=== PATIENT | male | born 1960 | race African-American/Black ===

== ENCOUNTER 2018-11-09 11:50 | Emergency (ER) | payer OTHER, MEDICARE ==
--- NOTE | 2018-11-09 12:12 | ER Document Report ---
ED Medical Screen (RME) - General Chief Complaint: Chest Pain Stated Complaint: CHEST PAIN Time Seen by Provider: 11/09/18 12:10 TRAVEL OUTSIDE OF THE [place] IN LAST 30 DAYS: No - HPI Notes: 11/09/18 12:11 Patient woke up this morning with symptoms similar to his last heart attack in 2016 number birthing sweating profusely. Patient is a symptomatic at this time. Patient states he has had diarrhea the last few days. Patient does have a history of 5 stents - Related Data Allergies/Adverse Reactions: No Known Allergies Allergy (Verified 11/09/18 11:52) Past Medical History - Past Medical History Cardiac Medical History: Reports: Hx Heart Attack - X3 Renal/ Medical History: Denies: Hx Peritoneal Dialysis Past Surgical History: Reports: Hx Cardiac Surgery - 5 stents Review of Systems - Review of Systems Cardiovascular: Chest pain Physical Exam - Vital signs Vitals: Temp Pulse Resp BP Pulse Ox 99.6 F 64 17 152/83 H 100 11/09/18 12:05 11/09/18 12:05 11/09/18 12:05 11/09/18 12:05 11/09/18 12:05 - Respiratory Respiratory status: No respiratory distress Chest status: Nontender Breath sounds: Normal Chest palpation: Normal Course - Vital Signs Vital signs: Temp Pulse Resp BP Pulse Ox 99.6 F 64 17 152/83 H 100 11/09/18 12:05 11/09/18 12:05 11/09/18 12:05 11/09/18 12:05 11/09/18 12:05
[2018-11-09 12:44] LABS: ABSOLUTE EOSINOPHILS # (AUTO) 0.1 10^3/uL (0.0-0.6); ABSOLUTE LYMPHOCYTES (AUTO) 0.6 10^3/uL (0.5-4.7); ABSOLUTE MONOCYTES (AUTO) 0.7 10^3/uL (0.1-1.4); ABSOLUTE NEUT (AUTO) 4.4 10^3/uL (1.7-8.2); BASOPHILS % (AUTO) 0.6 % (0-2); EOSINOPHILS % (AUTO) 0.9 % (0-6); HEMATOCRIT 45.2 % (37.9-51.0); HEMOGLOBIN 15.3 g/dL (13.5-17.0); MEAN CORPUSCULAR HEMOGLOBIN 29.2 pg (27.0-33.4); MEAN CORPUSCULAR VOLUME 86 fl (80-97); MONOCYTES % (AUTO) 11.8 % (3-13); PLATELET COUNT 208 10^3/uL (150-450); RED BLOOD COUNT 5.25 10^6/uL (4.35-5.55); RED CELL DISTRIBUTION WIDTH 15.7 % (11.5-14.0); SEGMENTED NEUTROPHILS % (AUTO) 75.7 % (42-78); TOTAL CELLS COUNTED % (AUTO) 100 %; WHITE BLOOD COUNT 5.7 10^3/uL (4.0-10.5)
--- NOTE | 2018-11-09 12:50 | RADIOLOGY REPORT (SQ) ---
EXAM DESCRIPTION: CHEST 2 VIEWS COMPLETED DATE/TIME: 11/09/2018 12:40 pm REASON FOR STUDY: cp COMPARISON: None. EXAM PARAMETERS: NUMBER OF VIEWS: two views TECHNIQUE: Digital Frontal and Lateral radiographic views of the chest acquired. RADIATION DOSE: NA LIMITATIONS: none FINDINGS: LUNGS AND PLEURA: No opacities, masses or pneumothorax. No pleural effusion. MEDIASTINUM AND HILAR STRUCTURES: No masses or contour abnormalities. HEART AND VASCULAR STRUCTURES: Heart normal size. No evidence for failure. BONES: No acute findings. HARDWARE: None in the chest. OTHER: No other significant finding. IMPRESSION: NO ACUTE RADIOGRAPHIC FINDING IN THE CHEST. TECHNICAL DOCUMENTATION: JOB ID: [id number] [employer]- All Rights Reserved Reading location - IP/workstation name: [email or web address]
[2018-11-09 13:04] LABS: ALANINE AMINOTRANSFERASE 14 U/L (21-72); ALBUMIN 4.5 g/dL (3.5-5.0); ALKALINE PHOSPHATASE 37 U/L (38-126); ANION GAP 8 (5-19); ASPARTATE AMINO TRANSFERASE 27 U/L (17-59); BILIRUBIN,DIRECT 0.3 mg/dL (0.0-0.4); BILIRUBIN,TOTAL 0.5 mg/dL (0.2-1.3); BLOOD UREA NITROGEN 11 mg/dL (7-20); CALCIUM 9.3 mg/dL (8.4-10.2); CARBON DIOXIDE 28 mmol/L (22-30); CHLORIDE 108 mmol/L (98-107); CREATINE KINASE 111 U/L (55-170); GLUCOSE 90 mg/dL (75-110); POTASSIUM 4.2 mmol/L (3.6-5.0); SODIUM 143.8 mmol/L (137-145); TOTAL PROTEIN 7.1 g/dL (6.3-8.2)
--- NOTE | 2018-11-09 13:07 | ER Document Report ---
ED General - General Chief Complaint: Chest Pain Stated Complaint: CHEST PAIN Time Seen by Provider: 11/09/18 12:10 TRAVEL OUTSIDE OF THE [place] IN LAST 30 DAYS: No - HPI Notes: Patient is a 57-year-old male with a history of hypertension, type 2 diabetes coronary artery disease with 5 stents being placed (last one in 2015) who presents to the emergency department complaining of belching and hiccuping after waking up diaphoretic at 4 AM. Patient states that these of the exact same symptoms that he had with the last 3 heart attacks. Patient states that he never has chest pain or respiratory symptoms associated. Patient states that he otherwise feels well and has been eating and drinking without difficulty. He is urinating normally and having normal bowel movements. Denies drug allergies. Patient does admit to smoking but denies IV drug abuse. He has no other concerns or complaints at this time. Patient is already adamant that he will be leaving by 4:00 this afternoon as he came to this area for his son's birthday [place] and will not be missing it. + occ cough. Denies any headache, fever, neck pain, URI, sore throat, chest pain, palpitations, syncope, shortness of breath, wheeze, dyspnea, abdominal pain, nausea/vomiting/diarrhea, urinary retention, dysuria, hematuria, loss of control of bowel or bladder, numbness/tingling, muscle paralysis/weakness, or rash. - Related Data Allergies/Adverse Reactions: No Known Allergies Allergy (Verified 11/09/18 11:52) Past Medical History - Social History Smoking Status: Current Every Day Smoker Family History: Reviewed & Not Pertinent Patient has suicidal ideation: No Patient has homicidal ideation: No - Past Medical History Cardiac Medical History: Reports: Hx Heart Attack - X3 Renal/ Medical History: Denies: Hx Peritoneal Dialysis Past Surgical History: Reports: Hx Cardiac Surgery - 5 stents Review of Systems - Review of Systems -: Yes All other systems reviewed and negative Physical Exam - Vital signs Vitals: Temp Pulse Resp BP Pulse Ox 99.6 F 64 17 152/83 H 100 11/09/18 12:05 11/09/18 12:05 11/09/18 12:05 11/09/18 12:05 11/09/18 12:05 - Notes Notes: PHYSICAL EXAMINATION: GENERAL: Well-appearing, well-nourished and in no acute distress. A&Ox4. Answers questions appropriately. HEAD: Atraumatic, normocephalic. EYES: Pupils equal round and reactive to light, extraocular movements intact, sclera anicteric, conjunctiva are normal. ENT: Nares patent and without discharge. oropharynx clear without exudates. No tonsilar hypertrophy or erythema. Moist mucous membranes. NECK: Normal range of motion, supple without lymphadenopathy LUNGS: Breath sounds clear to auscultation bilaterally and equal. No wheezes rales or rhonchi. HEART: Regular rate and rhythm without murmurs, rubs, gallops. ABDOMEN: Soft, nontender, nondistended abdomen. No guarding, no rebound. No masses appreciated. Normal bowel sounds present. No CVA tenderness bilaterally. Musculoskeletal: FROM to passive/active. Strength 5+/5. Marika neg. No asymmetry to LE's. Extremities: No cyanosis, clubbing, or edema b/l. Peripheral pulses 2+. Capillary refill less than 3 seconds. NEUROLOGICAL: Normal speech, normal gait. PSYCH: Normal mood, normal affect. SKIN: Warm, Dry, normal turgor, no rashes or lesions noted. Course - Re-evaluation Re-evalutation: 11/09/18 15:21 Patient is an afebrile, well-hydrated 57-year-old male who presents to the ED with hiccups and history concerning for cardiac etiology (same sx's last 3 MT's- w/o any cardiopulmonary symptoms). Vitals are acceptable without any significant tachycardia, tachypnea, or hypoxia. PE is otherwise unremarkable. Patient is nontoxic-appearing and is tolerating p.o. without any difficulties. Pt was given pepcid. CBC, CMP, EKG/cardiac enzyme x1, chest x-ray are all unremarkable for any acute pathology. Patient has a heart score of 4, Wells score of 0. Patient does not have any chest pain, dyspnea, or shortness of breath. Pt's 2nd trop was drawn(earlier than I wanted) bc pt elected to sign out AMA. I thoroughly reviewed the risk and benefit of leaving with an incomplete work up including the worst case of which he is understanding of. Patient is aware that his condition can change from initial presentation and he needs to monitor symptoms closely and seek medical attention for any acute changes. I will send him home with a single dose of thorazine for bedtime tonight and omeprazole. Recommend conservative measures for symptoms. Recheck with your PCM in 2-3 days. Consider consult with Cardiology. Return to the ED with any worsening/concerning symptoms otherwise as reviewed in discharge. Patient is in agreement. - Vital Signs Vital signs: Temp Pulse Resp BP Pulse Ox 99.6 F 64 25 H 162/95 H 98 11/09/18 12:05 11/09/18 12:05 11/09/18 14:01 11/09/18 14:01 11/09/18 14:01 - Laboratory Result Diagrams: 11/09/18 12:28 11/09/18 12:28 Laboratory results interpreted by me: 11/09/18 11/09/18 12:28 12:28 RDW 15.7 H Lymphocytes % 11.0 L Chloride 108 H ALT 14 L Alkaline Phosphatase 37 L Discharge - Discharge Clinical Impression: Hiccups Condition: Stable Disposition: AGAINST MEDICAL ADVICE Additional Instructions: Maintain adequate fluid and food intake Take home medications as directed Low sodium/fat diet Monitor blood pressure daily and keep a log Monitor symptoms for any acute changes Recheck with your PCM in 2-3 days Consider a follow-up with cardiology Return to the ED with any worsening symptoms and/or development of fever, headache, chest pain, palpitations, syncope, shortness of breath, trouble breathing, abdominal pain, n/v/d, blood in stool/urine, loss of control of bowel/bladder, urinary retention, muscle weakness/paralysis, numbness/tingling, or other worsening symptoms that are concerning to you. Prescriptions: Chlorpromazine HCl [Thorazine 50 mg Tablet] 50 mg PO QHS #1 tablet Omeprazole 20 mg PO DAILY #10 tablet.dr Forms: Elevated Blood Pressure Referrals: AUSTEN BARRERA MD [ACTIVE STAFF] - Follow up as needed
[2018-11-09 13:15] LABS: CREATINE KINASE MB 0.48 ng/mL (<4.55)
[2018-11-09 13:16] LABS: TROPONIN I < 0.012 ng/mL
[2018-11-09 13:38] LABS: A TYPE INFLUENZA AG NEGATIVE (NEGATIVE); B INFLUENZA AG NEGATIVE (NEGATIVE)
[2018-11-09] MEDS ORDERED: FAMOTIDINE 20 MG TABLET PO ONE (15:03)
[2018-11-09 15:34] VITALS: BP 169/97
--- NOTE | 2018-11-09 17:53 | EKG REPORT ---
SEVERITY:- ABNORMAL ECG - SINUS RHYTHM PROBABLE LEFT VENTRICULAR HYPERTROPHY : Confirmed by: Manuel Magallon MD 09-Nov-2018 17:52:48
== END 2018-11-09 15:39 | disposition left against medical advice (07) ==
LOC: ER 11:50
DX: R07.9 Chest pain, unspecified (principal); R06.6 Hiccough; I10 Essential (primary) hypertension; E11.9 Type 2 diabetes mellitus without complications; I25.10 Atherosclerotic heart disease of native coronary artery without angina pectoris; I25.2 Old myocardial infarction
CPT/HCPCS: 36415; 71046; 80053; 82550; 82553; 84484; 85025; 87804; 93005; 93010; 99284